=== PATIENT | female | born 1970 | race American Indian/Alaskan Native ===

== ENCOUNTER 2017-07-20 11:31 | Emergency (ER) | payer OTHER ==
[2017-07-20 11:43] VITALS: BP 115/72
--- NOTE | 2017-07-20 14:05 | Emergency Department Report ---
ED Headache HPI - General Chief Complaint: Headache Stated Complaint: MIGRAINE Time Seen by Provider: 07/20/17 14:03 Source: patient, family - History of Present Illness Timing/Duration: constant Quality: moderate Head Injury Location: frontal Recent Head Trauma: chronic headaches Modifying Factors: improves with: cold therapy Associated Symptoms: denies symptoms Allergies/Adverse Reactions: Allergies No Known Allergies Allergy (Unverified 07/20/17 11:37) Home Medications: Ambulatory Orders Methocarbamol [Robaxin TAB] 750 mg PO Q8H #30 tablet 07/20/17 ED Review of Systems ROS: Stated complaint: MIGRAINE Other details as noted in HPI Comment: All other systems reviewed and negative ENT: as per HPI Respiratory: cough. denies: shortness of breath ED Past Medical Hx - Past Medical History Previous Medical History?: Yes Hx Hypertension: No Hx Headaches / Migraines: Yes - Surgical History Past Surgical History?: No - Social History Smoking Status: Never Smoker Substance Use Type: Non Opiate Pain - Medications Home Medications: Home Medications Medication Instructions Recorded Confirmed Last Taken Type Methocarbamol [Robaxin TAB] 750 mg PO Q8H #30 tablet 07/20/17 Unknown Rx ED Physical Exam - General Limitations: No Limitations General appearance: alert, in no apparent distress - Head Head exam: Present: atraumatic, normocephalic - Eye Eye exam: Present: normal appearance, PERRL, EOMI Pupils: Present: normal accommodation - ENT ENT exam: Present: normal exam, normal orophraynx - Neck Neck exam: Present: normal inspection, full ROM - Respiratory Respiratory exam: Present: normal lung sounds bilaterally - Cardiovascular Cardiovascular Exam: Present: regular rate, normal rhythm - GI/Abdominal GI/Abdominal exam: Present: soft - Extremities Exam Extremities exam: Present: normal inspection - Back Exam Back exam: Present: normal inspection - Neurological Exam Neurological exam: Present: alert, altered, oriented X3 - Psychiatric Psychiatric exam: Present: normal affect - Skin Skin exam: Present: warm, dry, intact ED Course Vital Signs 07/20/17 11:37 Temperature 98 F Pulse Rate 63 Respiratory 20 Rate Blood Pressure 115/72 O2 Sat by Pulse 100 Oximetry Critical care attestation.: If time is entered above; I have spent that time in minutes in the direct care of this critically ill patient, excluding procedure time. ED Disposition Clinical Impression: Shoulder pain, left Qualifiers: Chronicity: acute Qualified Code(s): M25.512 - Pain in left shoulder Headache Qualifiers: Headache type: tension-type Headache chronicity pattern: acute headache Intractability: not intractable Qualified Code(s): G44.209 - Tension-type headache, unspecified, not intractable Disposition: DC-01 TO HOME OR SELFCARE Is pt being admited?: No Does the pt Need Aspirin: No Condition: Stable Prescriptions: Methocarbamol [Robaxin TAB] 750 mg PO Q8H #30 tablet Referrals: PRIMARY MD CHIARA [Primary Care Provider] - 3-5 Days LISE PARK MD [Staff Physician] - 3-5 Days
== END 2017-07-20 14:09 | disposition home or self-care (01) ==
LOC: ED 11:31
DX: G44.209 Tension-type headache, unspecified, not intractable (principal); M25.512 Pain in left shoulder
CPT/HCPCS: 99282

== ENCOUNTER 2017-10-29 13:04 | Emergency (ER) | payer OTHER ==
[2017-10-29] MEDS ORDERED: FLEXERIL PO ONE (15:56)
[2017-10-29] MEDS ORDERED: TORADOL IM ONE (15:56)
[2017-10-29] MEDS ORDERED: PERCOCET 5/325 PO ONE (15:56)
[2017-10-29 17:01] VITALS: BP 127/72
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
== END 2017-10-29 17:52 | disposition home or self-care (01) ==
LOC: ED 13:04
DX: S39.012A Strain of muscle, fascia and tendon of lower back, initial encounter (principal); M51.37 Other intervertebral disc degeneration, lumbosacral region; G43.909 Migraine, unspecified, not intractable, without status migrainosus; X58.XXXA Exposure to other specified factors, initial encounter; Y93.89 Activity, other specified; Y92.89 Other specified places as the place of occurrence of the external cause; Y99.8 Other external cause status
CPT/HCPCS: 72100; 96372; 99283; J1885